=== PATIENT | male | born 1935 | race Caucasian/White ===

== ENCOUNTER → 2024-04-27 11:12 | Outpatient (REF) | payer OTHER, SELFPAY | LOC: RAD 11:12 | PROVIDERS: ATTENDING PHYSICIAN Internal Medicine | DX: N40.0 Benign prostatic hyperplasia without lower urinary tract symptoms (principal); R33.9 Retention of urine, unspecified | CPT/HCPCS: 76770 ==

== ENCOUNTER → 2024-05-12 14:13 | Outpatient (REF) | payer OTHER, SELFPAY | LOC: RAD 14:13 | PROVIDERS: ATTENDING PHYSICIAN Internal Medicine | DX: R55 Syncope and collapse (principal) | CPT/HCPCS: 93880 ==

== ENCOUNTER 2024-08-10 18:35 | Observation (INO) | payer OTHER, SELFPAY ==
[2024-08-10 15:37] VITALS: BP 154/74
[2024-08-10 16:31] VITALS: BP 177/78
[2024-08-10 16:38] LABS: % Basophils 0.5 % (0-2); % Eosinophils 2.7 % (0-6); % Immature Granulocytes 0.2 % (0-0.5); % Lymphocytes 34.3 % (20.5-51.1); % Monocytes 8.2 % (1.7-9.3); % Neutrophils 54.1 % (42.2-75.2); Absolute Eosinophils 0.2 10^3/uL (0-0.7); Absolute Monocytes 0.5 10^3/uL (0.1-0.6); Absolute Neutrophils 3.2 10^3/uL (1.4-6.5); Hematocrit 35.8 % (39.0-52.0); Hemoglobin 12.4 g/dL (13.0-18.0); Mean Corp Hgb Conc. 34.6 g/dL (33.0-37.0); Mean Corpuscular Hgb 32.4 pg (27.0-31.0); Mean Corpuscular Volume 93.5 fL (80.0-94.0); Mean Platelet Volume 10.7 fL (7.4-10.4); Nucleated Red Blood Cells % 0 % (-); Platelet Count 159 10^3/uL (130-400); Red Blood Cell Count 3.83 10^6/uL (4.70-6.10); Red Cell Dist. Width 12.9 % (11.5-14.5); White Blood Cell Count 5.9 10^3/uL (4.8-10.8)
[2024-08-10 17:01] LABS: Troponin I < 0.012 ng/ml
[2024-08-10 17:07] LABS: ALT (SGPT) 13 U/L (0-50); AST (SGOT) 18 U/L (17-59); Albumin 3.9 g/dl (3.5-5.0); Alkaline Phosphatase 77 U/L (38-126); Blood Urea Nitrogen 28 mg/dl (9-20); Calcium 9.2 mg/dl (8.4-10.2); Carbon Dioxide 27 mmol/L (22-30); Chloride 108 mmol/L (98-107); Glucose 101 mg/dl (70-99); Potassium 3.9 mmol/L (3.5-5.1); Sodium 142 mmol/L (135-145); Total Bilirubin 0.7 mg/dl (0.2-1.3); Total Protein 5.8 g/dl (6.3-8.2); eGFR > 60.00
--- NOTE | 2024-08-10 17:53 | HPS.HSE ---
Family Physician
-
Family Physician: Jamal Walsh
Chief Complaint
-
lightheaded, sob
History of Present Illness
89-year-old with past medical history for hypertension, BPH presented to us with shortness of breath and lightheaded with exertion. He felt that last when he was walking to the store, which resolved its on. Today he felt as he was walking
to his mailbox, which prompted him to come to the ER. Patient denies any chest pain. Patient denies any headache or syncope. Patient denied any blurry vision, numbness, tingling. Patient denies abdominal pain, nausea, vomiting or diarrhea.
Patient denies dysuria, hematuria.
EKG with sinus bradycardia. Admitted for further management
Medical History
Past Medical History
Past Medical History: Reports Other
Additional Past Medical History:
Hypertension
BPH
Dyslipidemia
Renal calculi
Diverticulosis
Central vein occlusion of right eye
Sciatica
Past Surgical History: Reports Appendectomy, Urological and Other
Additional Past Surgical History:
Basal cell carcinoma nose
Social History
Tobacco: Former Smoker
Alcohol: Occasional
Drug: None
Living: With Family
Family History
Family History: Not pertinent
Allergies / Home Medications
Allergies reflects when Allergies were last updated in [employer].
Home Medications with original date entered in [employer]
Allergy/Medication List:
Allergies
Allergy/AdvReac Type Severity Reaction Status Date / Time
No Known Allergies Allergy Verified 08/10/24 15:39
Home Medications
labetalol 300 mg tablet 600 mg PO BID 08/14/10
nifedipine 90 mg tablet,extended release 24 hr 90 mg PO QPM 08/14/10
valsartan 160 mg tablet (Diovan) 160 mg PO DAILY 08/14/10
cholecalciferol (vitamin D3) 50 mcg (2,000 unit) tablet (Vitamin D3) 50 mcg PO BID 08/10/24
finasteride 5 mg tablet 5 mg PO QPM 08/10/24
magnesium oxide 200 mg PO DAILY 08/10/24
tamsulosin 0.4 mg capsule 0.8 mg PO HS 08/10/24
therapeutic multivitamin 1 tab PO DAILY 08/10/24
Review of Systems
-
Constitutional: Reports No Symptoms
EENT: Reports No Symptoms
Respiratory: Reports Trouble Breathing
Cardiac: Reports No Symptoms
Abdomen/GI: Reports No Symptoms
: Reports No Symptoms
Musculoskeletal: Reports No Symptoms
Skin: Reports No Symptoms
Neurological: Reports Other (Lightheaded)
Endocrine: Reports No Symptoms
Hematologic/Lymphatic: Reports No Symptoms
Psych: Reports No Symptoms
Physical Exam
Vital Signs
Vital Signs
Temp Pulse Resp BP Pulse Ox
98.8 F 62 14 177/78 96
08/10/24 15:37 08/10/24 17:00 08/10/24 17:00 08/10/24 16:31 08/10/24 17:00
Physical Exam
General: Well Developed, Well Nourished and No Apparent Distress
HEENT: NormoCephalic, Moist mucous membranes and Atraumatic
Respiratory: Clear
Cardiac: S1/S2, Regular Rhythm and Bradycardia; No Murmur or Rub
GI: Soft, Non Tender, Non Distended and Normal Bowel Sounds; No Organomegaly
Rectal: Deferred by Provider
Musculoskeletal: No Clubbing, No Cyanosis and No Edema
Skin: No Rash
Neuro: AO x 3 and Nonfocal/grossly intact
Psych: Calm
Laboratory Results
-
08/10/24 16:28
08/10/24 16:28
Laboratory Results
Total Bilirubin 0.7 mg/dl (0.2-1.3) 08/10/24 16:28
AST 18 U/L (17-59) 08/10/24 16:28
ALT 13 U/L (0-50) 08/10/24 16:28
Alkaline Phosphatase 77 U/L (38-126) 08/10/24 16:28
Troponin I < 0.012 ng/ml 08/10/24 16:28
Data Reviewed
-
Lab Data: Labs Reviewed by me
Impression/Plan
-
#lightheaded/sob possible secondary to Bradycardia
- EKG with sinus bradycardia with first-degree AV block with frequent and consecutive PVCs and fusion complexes
- Continue to monitor on telemetry cardiology consulted
- Will hold labetalol
#essential hypertension
- Valsartan, nifedipine continued with hold parameters
# BPH
- Finasteride, tamsulosin continued
# DVT prophylaxis
- Lovenox subcu
# CODE STATUS
- Full code
--- NOTE | 2024-08-10 18:47 | W.PN.UPDATE ---
Update Note
Progress Note Update
This note serves as an addendum to the H&P by vb net developer STEPHANIE Jaqueline ARGUELLO
HPI
89M HX HTN control on Labetolol, HLD seenh at ER for SoB and and lightheaded with exertion.
- last when he was walking to the store, which resolved its on.
- Today he felt as he was walking to his mailbox, which prompted him to come to the ER.
ROS
Patient denies any chest pain. Patient denies any headache or syncope.
Patient denied any blurry vision, numbness, tingling.
Patient denies abdominal pain, nausea, vomiting or diarrhea. Patient denies dysuria, hematuria.
VS
08/10/24
15:37 08/10/24
16:15 08/10/24
16:30
Temp 98.8 F
Pulse 52 55
Resp Rate 21
Blood pressure 154/74
SaO2 97
Oxygen Mode of Delivery Room air
PE
Gen: Not toxic , NAD
HEENT: moist OM
Neck: supple , no bruit
Lungs: CTA
Cor: RRR S1 s2
Abdomen: Soft, Non Tender, Non Distended
BOIL OFF MACHINE OPERATOR CLOTH: AAO3 NFND
MS:No Edema
Psych: nl mood andf affect
Lab
08/10/24
16:28
WBC 5.9
Hgb 12.4 L
Plt Count 159
Chloride 108 H
BUN 28 H
Creatinine 1.1
eGFR > 60.00
Troponin I < 0.012
EKG
SINUS BRADYCARDIA WITH 1ST DEGREE A-V BLOCK WITH FREQUENT , AND CONSECUTIVE
PREMATURE VENTRICULAR COMPLEXES AND FUSION COMPLEXES
LEFT AXIS DEVIATION
ABNORMAL ECG
WHEN COMPARED WITH ECG OF 21-OCT-2018 15:50,
FUSION COMPLEXES ARE NOW PRESENT
PREMATURE VENTRICULAR COMPLEXES ARE NOW PRESENT
NONSPECIFIC T WAVE ABNORMALITY HAS REPLACED INVERTED T WAVES IN INFERIOR LEADS
Confirmed by ANUSHKA COLORADO MD ([id number]) on 08/10/2024 4:59:02 PM
No prior hospitalist admission:
ASSESSMENT & PLAN
Exertional lightheadedness ? symptomatic bradycardia
Noted Bradycardia : - EKG with SB with first-degree AVB with frequent and consecutive PVCs and fusion complexes
- TLM monitor
- Agree with holding Labetalol
- DCA card consulted
Essential HTN
- on Valsartan, nifedipine continued with hold parameters
BPH
- on SUPERVISOR WATERPROOFING Finasteride, tamsulosin
DVT Px: LMWH
Full code
Obs TLM
[2024-08-10 19:30] VITALS: BMI 25.6
[2024-08-10] MEDS: VITAMIN D3 (cholecalciferol) 50 MCG PO (20:12)
[2024-08-10] MEDS: FLOMAX 0.8 MG PO (20:13)
[2024-08-10 20:20] VITALS: BP 166/86
--- NOTE | 2024-08-10 20:20 | PTCARENOTE ---
Pt arrived onto floor @2019. Pt AAOx3 and able to walk into room without assistance. Pt with no complaints of pain or SOB at this time. Pt oriented to room and call pablo; will continue to monitor
[2024-08-10 23:48] VITALS: BP 173/87
[2024-08-11 00:12] VITALS: BP 178/78
[2024-08-11] MEDS: APRESOLINE 5 MG PO (00:24)
[2024-08-11 03:09] VITALS: BP 164/71
[2024-08-11 07:48] VITALS: BP 172/79
[2024-08-11 08:47] LABS: HDL Cholesterol 49 mg/dl; LDL Cholesterol, Calculated 85 mg/dl; Total Cholesterol 153 mg/dl (50-199); Triglyceride 97 mg/dl (10-149); Very Low Density Lipoprotein 19 mg/dl (0-30)
[2024-08-11] MEDS: MAG-TAB SR 84 MG PO (09:26)
[2024-08-11] MEDS: DIOVAN 160 MG PO (09:26)
[2024-08-11] MEDS: THERAGRAN 1 TABLET PO (09:27)
[2024-08-11] MEDS: VITAMIN D3 (cholecalciferol) 50 MCG PO (09:27)
--- NOTE | 2024-08-11 09:31 | CON.CAR ---
Addendum entered and electronically signed by Matthew Alvarez MD 08/11/24 14:58:
89-year-old man admitted with exertional lightheadedness and dyspnea. No recent true syncope, variable heart rates on smart watch. He has not fallen. He had a syncopal episode New Year's Edie in the, falling on his shoulder but without serious
injury. He was not having any of these symptoms of exertional lightheadedness and dyspnea prior to Saturday.
PMH: Hypertension, BPH, remote syncope, central retinal vein occlusion of the right eye, degenerative disc disease, sciatica
PSH: Appendectomy, epidurals, dermatologic and cataract
SH: Former smoker, occasional alcohol, , lives independently, former executive
FH: Noncontributory
Allergies: None
Outpatient medications: Labetalol 600 mg twice daily, nifedipine ER 90 mg daily, valsartan 160 mg daily, vitamin D, finasteride, magnesium, tamsulosin
Current meds: Magnesium, nifedipine ER 90 today, tamsulosin 0.5 g at bedtime, valsartan 160 mg daily,
166/85, Pulse 39-78, head neck exam unremarkable, lungs are clear, irregular rate and rhythm at times but no murmurs, JVD okay, carotids okay, abdomen benign extremities without clubbing cyanosis or edema distal pulses intact
ECG sinus bradycardia with PVCs in a trigeminal pattern, suspected rate related right bundle branch block, cannot rule out septal CO, left axis deviation
Hemoglobin 12.4, BUN/creatinine 28 and 1.1, troponin undetectable, LDL 85, TSH 1.38
Preliminary echo today: Normal LV function, no significant valve abnormality
Impression:
Dyspnea, lightheadedness with frequent PVCs
Bradycardia on high-dose labetalol
Hypertension
Syncope 04/28/2024
History of central retinal vein occlusion right eye
Plan:
He presents with near syncope on high-dose labetalol with a low effective heart rate in the setting of frequent PVCs. Since stopping labetalol, his heart rate has improved. His activity has been limited but he feels better. Suspect that episodes
of lightheadedness were related to combination of PVCs, bradycardia and possibly hypotension. Bradycardia and hypotension are likely improved with withdrawal of labetalol.
His troponin was undetectable at admission, it seems unlikely that PVCs are ischemic in origin, though as outpatient he should probably have a stress test.
He remains somewhat hypertensive. He was not orthostatic.
He will require an outpatient monitor and outpatient cardiac follow-up, which we will arrange.
From our standpoint, okay for discharge.
Recommended cardiac medications at discharge
Labetalol 150 mg twice daily (was 600 mg twice daily)
Valsartan 320 mg daily (increased dose)
Nifedipine ER 90 mg a day
Patient instructed to limit driving and keep activity light
Original Note:
Consultation
Consultation Request
Date/Time Consultation Requested: 08/10/2024
Date/Time Consultation Performed: 08/11/2024
Requesting Provider: Dr. Bueno
Performing Provider: Rosita Navarro PA-C for Dr. Matthew Alvarez
Reason for Consultation: Exertional lightheadedness, shortness of breath, bradycardia
Medical History
-
History of Present Illness:
Patient is an 89-year-old male with past medical history significant for hypertension, hyperlipidemia, BPH and prior history of remote syncope who presents to emergency department 08/10/2024 with complaints of exertional lightheadedness and shortness
of breath. Patient reports on several occasions over the last week particularly when getting out of the car and going into appointments or stores he will get lightheadedness and dyspnea on exertion. It seems to be progressively getting worse with
less activity. He denies lightheadedness or shortness of breath at rest. He denies chest pain or palpitations. He does wear a smart watch and has noted heart rate variability from 40 to 70 bpm. He denies orthopnea PND or edema. Given symptoms
were ongoing he decided to seek emergency medical attention. EKG on presentation showed sinus bradycardia with PVCs and trigeminal pattern. Troponin was undetectable. Blood pressure was noted to be elevated. He was on labetalol which was placed
on hold in emergency department.
At time of this evaluation patient reports he is feeling well. He denies recurrent symptoms but has not been up moving around a whole lot since admission.
Past Medical History:
Hypertension
BPH
History of syncope
Hyperlipidemia
Renal calculi
Diverticulosis
Central vein occlusion of right eye
Degenerative disc disease/Sciatica
Basal cell carcinoma on nose with resection
Past Medical History
Past Medical History: Other (See HPI)
Past Surgical History: Appendectomy, Orthopedic (Multiple spinal injections) and Other (Basal cell skin cell excision on nose 2018, cataract extraction January 2024)
Social History
Tobacco: Former Smoker
Alcohol: Occasional (Few times a week)
Drug: None
Personal:
Living: Alone (Independent living at [facility])
Employment: Retired (Former executive)
Family History
Family History: Early CAD (Brother) and Hypertension (Mother)
Allergies / Home Medications
Allergy/AdvReac Type Severity Reaction Status Date / Time
No Known Allergies Allergy Verified 08/10/24 15:39
�Medication �Instructions �Recorded �Confirmed �Type
labetalol 300 mg tablet 600 mg PO BID Blood Pressure 08/14/10 08/10/24 History
nifedipine 90 mg tablet,extended 90 mg PO QPM Heart 08/14/10 08/10/24 History
release 24 hr Disease/Condition
valsartan 160 mg tablet (Diovan) 160 mg PO DAILY Blood Pressure 08/14/10 08/10/24 History
cholecalciferol (vitamin D3) 50 50 mcg PO BID Supplement 08/10/24 08/10/24 History
mcg (2,000 unit) tablet (Vitamin
D3)
finasteride 5 mg tablet 5 mg PO QPM BPH 08/10/24 08/10/24 History
magnesium oxide 200 mg PO DAILY Supplement 08/10/24 08/10/24 History
tamsulosin 0.4 mg capsule 0.8 mg PO HS Urinary Issue 08/10/24 08/10/24 History
therapeutic multivitamin 1 tab PO DAILY Supplement 08/10/24 08/10/24 History
Review of Systems
-
History Source: Patient
All other systems: Negative unless noted
Physical Exam
Vital Signs
Temp Pulse Resp BP Pulse Ox
98.5 F 48 18 172/79 95
08/11/24 07:48 08/11/24 07:48 08/11/24 07:48 08/11/24 07:48 08/11/24 07:48
GEN: No distress, awake, Ox3
HEENT: supple, anicteric, mmm
LUNGS: CTA, no wheezes/rales
CV: Distant heart tones reg rhythm with occasional ectopy, S1/S2, 1/6 syst murmur, no rub or gallop
ABD: soft, BS+, NT/ND
EXT: No edema, clubbing or cyanosis
NEURO: Gross non-focal
SKIN: No rash, warm, dry, pink
Lab Results
08/10/24 16:28
08/10/24 16:28
Troponin I < 0.012 ng/ml 08/10/24 16:28
Impression / Plan
-
PCP: Neo Walsh
Improvement Manager: None prior to arrival, initial consultation
Impression:
Presented 08/10/2024 with exertional lightheadedness and dyspnea on exertion
Bradycardia
Frequent PVCs
Hypertension
BPH
History of syncope
Hyperlipidemia
Renal calculi
Diverticulosis
Central vein occlusion of right eye
Degenerative disc disease/Sciatica
Basal cell carcinoma on nose with resection
Echo 08/11/2024: Ordered
Plan:
-Presented 08/10/2024 with exertional lightheadedness and dyspnea on exertion x 1 week.
- EKG on admission showed sinus bradycardia with first-degree AV block and frequent PVCs and ventricular trigeminal pattern at times. Review of telemetry overnight shows ongoing frequent PVCs and form of ventricular bigeminy and trigeminy
- Labetalol currently on hold
-Check echocardiogram
-Laboratory studies rather unremarkable with normal electrolytes and renal function.
-Will add on magnesium and TSH
-History of hypertension previously maintained on labetalol, nifedipine and valsartan. Labetalol currently on hold.
-Would consider up titration of valsartan to 320 mg daily for better blood pressure control
-Pending echo could consider alternative beta-asia such as Toprol or Coreg
-Troponin negative. Consider ischemic evaluation as outpatient as patient's symptoms happen with activity
-Likely would benefit from wearing outpatient ambulatory monitor to assess overall PVC burden and heart rate response to activity
HPI 08/11/2024:
Patient is an 89-year-old male with past medical history significant for hypertension, hyperlipidemia, BPH and prior history of remote syncope who presents to emergency department 08/10/2024 with complaints of exertional lightheadedness and shortness
of breath. Patient reports on several occasions over the last week particularly when getting out of the car and going into appointments or stores he will get lightheadedness and dyspnea on exertion. It seems to be progressively getting worse with
less activity. He denies lightheadedness or shortness of breath at rest. He denies chest pain or palpitations. He does wear a smart watch and has noted heart rate variability from 40 to 70 bpm. He denies orthopnea PND or edema. Given symptoms
were ongoing he decided to seek emergency medical attention. EKG on presentation showed sinus bradycardia with PVCs and trigeminal pattern. Troponin was undetectable. Blood pressure was noted to be elevated. He was on labetalol which was placed
on hold in emergency department.
At time of this evaluation patient reports he is feeling well. He denies recurrent symptoms but has not been up moving around a whole lot since admission.
Data Reviewed
-
EKG: Report Reviewed by me, Discussed with Physician and Discussed with Patient
Labs: Labs Reviewed by me, Discussed with Physician and Discussed with Patient
Old Records: Reviewed
[2024-08-11 11:11] VITALS: BP 166/85
--- NOTE | 2024-08-11 11:27 | W.PN.HOSP.TC ---
Today's Communication/Plan
-
TTE
possible DC post echo read
Assessment / Plan
Assessment / Plan
89-year-old with past medical history for hypertension, BPH presented to us with shortness of breath and lightheaded with exertion. EKG with sinus bradycardia
Symptomatic Bradycardia
Exertional shortness of breath and lightheadedness
-admitted to telemetry
-hold BRASS POLISHER Labetalol
-monitor on telemetry
-appreciate cardiology consult
-TTE
-will need outpatient eval for cardiac monitoring and ischemic work up
Essential HTN
- on Valsartan, nifedipine continued with hold parameters
- may need to adjust regimen based on BP readings off Labetalol
BPH
- on BRASS POLISHER Finasteride, tamsulosin
DVT Px: LMWH
Full code
Obs TLM
Anticipated Discharge: Within 24 hours
Subjective/Interval History
-
Date of Service: August 11, 2024
feeling well today, hasn't walked around a significant amount
Objective Data
-
Vital Signs:
Vital Signs
Temp Pulse Resp BP Pulse Ox
97.5 F 39 18 166/85 97
08/11/24 11:11 08/11/24 11:11 08/11/24 11:11 08/11/24 11:11 08/11/24 11:11
I&O
08/10/24 08/11/24 08/12/24
06:59 06:59 06:59
Intake Total 240 / 240
Balance 240 / 240
Review of Systems
-
History Source: Patient
All other systems: Reviewed and negative
Physical Exam
-
General: No Apparent Distress and Conversant
HEENT: PERRLA
Respiratory: Clear to Auscultation; Negative Wheezes
Cardiac: Regular Rhythm and S1/S2
GI: Soft and Nontender
Musculoskeletal: No Edema
Skin: Warm and Dry; Negative Rash
Neuro: AO x 3
Psych: Calm
Data Reviewed
-
Diagnostic Radiology: Report Reviewed by me
Labs: Labs Reviewed by me
[2024-08-11 11:30] LABS: Magnesium 1.9 mg/dl (1.6-2.3)
[2024-08-11 12:00] LABS: TSH Reflex To Free T4 1.38 uIU/ml (0.47-4.68)
[2024-08-11 13:22] VITALS: BP 138/73; BP 140/76; PULSE 43; PULSE 60
[2024-08-11 15:02] VITALS: BP 156/81
--- NOTE | 2024-08-11 15:58 | W.DS.TRANS ---
DC Summary - Health Economist
-
Discharge Instructions:
Discharge Diagnosis/Procedures Bradycardia, dyspnea on exertion
Diet 2 Gram Sodium
Activity As tolerated
Driving Restrictions As prior to admission
Bathing Restrictions None
Others Tests You will go home with a 7 day ambulatory heart
monitor to will be returned to cardiology office
. Once returned monitor will take 7-10 days to
get results
Instructions:
Stand-Alone Forms:
Changes to Home Medications: Yes
Discharge Medications:
DC Medications w/original date entered in [employer]
nifedipine 90 mg tablet,extended release 24 hr 90 mg PO QPM Heart Disease/Condition 08/14/10
cholecalciferol (vitamin D3) 50 mcg (2,000 unit) tablet (Vitamin D3) 50 mcg PO BID Supplement 08/10/24
finasteride 5 mg tablet 5 mg PO QPM BPH 08/10/24
magnesium oxide 200 mg PO DAILY Supplement 08/10/24
tamsulosin 0.4 mg capsule 0.8 mg PO HS Urinary Issue 08/10/24
therapeutic multivitamin 1 tab PO DAILY Supplement 08/10/24
labetalol 300 mg tablet 150 mg (1/2 x 300 mg) PO BID Blood Pressure #0 tabs 08/11/24
valsartan 160 mg tablet (Diovan) 320 mg (2 x 160 mg) PO DAILY Blood Pressure #60 tabs 08/11/24
Home Medication Changes
Your Labetalol is decreased from 600mg (2 pills) to 150mg (0.5 pills) to take twice a day.
Your Valsartan is increased from 160mg (1 pill) to 320mg (2 pills) - continue to take once a day.
Pending Results: No
--- NOTE | 2024-08-11 16:16 | CM ---
agronomy location manager reviewed patient's chart and patient was admitted under OBS. CASE provided, patient lives in the [facility] [place] Home alone is independent with adl's and ambulation, patient has a cane that he uses sometimes. patient drives.
PCP: Dr. Walsh
Pharmacy [facility].
Plan; Home today no needs.
--- NOTE | 2024-08-11 16:17 | W.DCSUMMARY ---
Discharge Summary
Discharge Data
Date of Admission: 08/10/24
Date of Discharge: 08/11/24
-
Pending Results: No
Hospital Course
Discharging Physician : Dr. Mary Matson
Disposition : Home
Primary care physician : Dr. Jamal Walsh
Principal Discharge diagnosis : Bradycardia, Shortness of breath with exertion
Hospital Course :
Mr. Filiberto Lopez is a 89 yo man with hx essential HTN, BPH presented to the ER with shortness of breath and lightheadedness with exertion. Triage VS: T 98.8, P 62, RR 14, BP 177/78, SpO2 96%. Labs with WBC 5.9, HG 12.4, PLT 159, Na 142, K+
3.9, CO2 27, Cr 1.1, Glucose 101, liver enzymes WNL, Trop 0.012. EKG with sinus bradycardia with PVC's in a trigeminal pattern.
His Labetalol was held. He was admitted to medicine with Cardiology consulting for further work-up of dyspnea on exertion, possible symptomatic bradycardia versus PVC's. Patient's HR remained in 50's-60's off of Labetalol. TTE without significant
findings. Per Cardiology recommendations, he is discharged on 1/4 dose prior Labetalol (decrease from 600mg BID to 150mg BID) with an increase in Valsartan dosing from 160mg daily to 320mg daily. An outpatient heart monitor and Cardiology follow
up is arranged.
Patient was eager for discharge. He is instructed to monitor his blood pressure at home.
Time spent on discharge was 35 minutes.
Important imaging findings :
Procedure findings :
Discharge Plan
-
Patient Disposition: Home (Routine Discharge)
Discharge Diagnosis/Procedures: Bradycardia, dyspnea on exertion
Diet: 2 Gram Sodium
Activity: As tolerated
Driving Restrictions: As prior to admission
Bathing Restrictions: None
Others Tests: You will go home with a 7 day ambulatory heart monitor to will be returned to cardiology office. Once returned monitor will take 7-10 days to get results
Activity Restrictions/Additional Instructions:
Return to the ER if you have return of significant shortness of breath, chest discomfort, feelings of lightheadedness/dizziness
Referrals:
Rosita Navarro PA-C [Specified Professional Personl] - 09/02/24 12:40 pm (You have cardiology follow-up with Rosita Navraro PA-C on September 02 at 12:40 PM in [address] in [address] [place] which is located behind [facility]. If you are unable to make
this appointment please call [phone] to reschedule)
Jamal Walsh MD [Family Provider] - in less than 1 week
Additional Discharge Medication Instructions: Your Labetalol is decreased from 600mg (2 pills) to 150mg (0.5 pills) to take twice a day.
Your Valsartan is increased from 160mg (1 pill) to 320mg (2 pills) - continue to take once a day.
Monitor your blood pressure at home - 90 minutes after your morning medications and bring these recordings to your next clinic appointment. Check your blood pressure if you ever feel lightheaded or dizzy.
Prescriptions:
Continued
nifedipine 90 MG tablet extended release 24hr
90 mg PO QPM
therapeutic multivitamin Tablet
1 tab PO DAILY
tamsulosin 0.4 mg Capsule
0.8 mg PO HS
finasteride 5 mg Tablet
5 mg PO QPM
cholecalciferol (vitamin D3) [Vitamin D3] 50 mcg (2,000 unit) Tablet
50 mcg PO BID
magnesium oxide 200 mg magnesium Tablet
200 mg PO DAILY
Changed
valsartan [Diovan] 160 MG tablet
320 mg PO DAILY Qty: 60 0RF
labetalol 300 MG tablet
150 mg PO BID Qty: 0 0RF
Discharge Orders:
Discharge Patient (As Directed); Ordered 08/11/24
Ordered By: Mary Matson
Discharge Date and Time
Print Language: SWAZI
--- NOTE | 2024-08-12 16:21 | ED.GENMED ---
History of Present Illness
General
Chief Complaint: Dizziness
Source: patient
Exam Limitations: none
Time Seen by Provider: 08/10/24 15:57
History of Present Illness
History of Present Illness:
Patient presents with 3 episodes of shortness of breath with exertion. The third episode which was the day of admission was much worse with shorter distance. Previous episodes over the last few days have been with relatively significant distance.
Some lightheadedness with this. No chest pain no syncope. Patient feels fine at rest.
Past History
Past History
ED Past Medical History: HTN
ED Past Surgical History: Appendectomy
Social History
Tobacco: Non-smoker
Alcohol: Daily
Drug: None
Personal:
Living: with family
Employment: Retired (Retired [employer] of a [employer])
Family History
Family History: Other (nc)
Review of Systems
Review of Systems
All Other Systems: Not applicable
Constitutional: Denies fever or chills
Cardiac: Denies chest pain or syncope
Phy Exam
Physical Exam
Physical Exam:
GENERAL: Alert and oriented in no apparent distress
EYE: Orbits normal.
NECK: Supple, no significant adenopathy.
ENT: Pharynx without erythema
CARDIAC: Regular rate and rhythm without any obvious murmurs.
LUNGS: Clear breath sounds,normal
ABDOMEN: Soft, without focal tenderness or distention
NEUROLOGICAL: Alert and oriented , grossly non-focal
SKIN: Warm and dry, no rash or lesion, no discoloration, skin intact.
MUSCULOSKELETAL: No edema,no deformity.Good color
PSYCH: Normal and appropriate interaction.
Course
Orders/Labs/Results
Orders:
Orders
08/10/24 Breakfast
Cholesterol Lowering
At Your Request: Full Participation
Does patient need a safe tray?: No
Cholesterol Lowering: Sodium, 2 Gram
08/10/24 15:40
Electrocardiogram (*1) Urgent
Reason for Study: Shortness of Breath
08/10/24 16:28
Complete Blood Count/With Diff Urgent
Comprehensive Metabolic Panel Urgent
Troponin I Urgent
08/10/24 18:05
Admit/Transfer Patient As Directed
Co-Sign Provider:
Level of Care: Observation services
Assign to:: Telemetry
Physician / Group: kylie mireles
Diagnosis: bradycarida
Reason for Telemetry: Arrhythmia
Date to Stop Telemetry: 08/13/24
Time to Stop Telemetry: 11:00
PRN Pain Medication Management As Directed
May give lesser potent ordered pain med per pt: Yes
preference::
Protocol:: Medication orders for pain may be administered in a
manner that supports deferring to patient preference
when the pt is:
- Requesting an ordered lesser potent pain medication.
Least to most potent pain medications are defined
as: acetaminophen < NSAID < tramadol < opioids
(morphine, oxycodone, hydromorphone).
- Requesting a lesser dose of the same medication IF
ORDERED.
- Requesting a less intrusive route of administration
if both routes are prescribed by the provider (PO <
IV).
08/10/24 18:06
Code Status As Directed
Resuscitation Status: Full Code
08/10/24 19:30
Acetaminophen [Tylenol] 650 mg PO Q4HPRN PRN
Bisacodyl [Dulcolax] 10 mg RECTAL [id number] PRN
Docusate W/Senna [Senokot-S] 1 tablet PO BIDPRN PRN
Polyethylene Glycol Powder [Miralax] 17 grams PO DAILYPRN PRN
08/10/24 19:30
CARDIOLOGY CONSULT Routine
Consulting Provider: Dayton Skelton
Was physician already notified: Yes
Activity As Directed
Activity Level: As Tolerated
Vital Signs As Directed
Frequency: Per unit guidelines
DX Deep Vein Thrombosis Video Routine
08/10/24 20:00
Cholecalciferol (Vitamin D3) [VITAMIN D3 (cholecalciferol)] 50 mcg PO BID
08/10/24 22:00
Tamsulosin [Flomax] 0.8 mg PO HS
08/11/24 07:16
Cardiovascular Evaluation IN AM
08/11/24 08:00
Magnesium l-Lactate [Mag-Tab Sr] 84 mg PO DAILY
Multivitamin [Theragran] 1 tablet PO DAILY
Valsartan [Diovan] 160 mg PO DAILY
08/11/24 18:00
Enoxaparin Sodium [Lovenox] 40 mg SC QPM
Finasteride [Proscar] 5 mg PO QPM
NIFEdipine EXTENDED RELEASE [Procardia Xl (Extended Release)] 90 mg PO QPM
08/13/24 11:00
DC Protocol for Telemetry ONCE
Abnormal Lab Results
08/10/24
16:28
RBC 3.83 L 10^6/uL
(4.70-6.10)
Hgb 12.4 L g/dL
(13.0-18.0)
Hct 35.8 L %
(39.0-52.0)
MCH 32.4 H pg
(27.0-31.0)
MPV 10.7 H fL
(7.4-10.4)
Chloride 108 H mmol/L
(98-107)
BUN 28 H mg/dl
(9-20)
Glucose 101 H mg/dl
(70-99)
Total Protein 5.8 L g/dl
(6.3-8.2)
08/10/24 16:28
08/10/24 16:28
Vital Signs
Initial and Last Documented VS:
Initial Vital Signs
Temp Pulse Resp BP Pulse Ox
98.8 F 38 16 154/74 97
08/10/24 15:37 08/10/24 15:37 08/10/24 15:37 08/10/24 15:37 08/10/24 15:37
Last Documented Vital Signs
Temp Pulse Resp BP Pulse Ox
97.5 F 64 16 156/81 98
08/11/24 15:02 08/11/24 15:02 08/11/24 15:02 08/11/24 15:02 08/11/24 15:02
MDM/Problems Addressed
Differential Diagnosis Includes:
Patient presenting with shortness of breath with exertion and near syncope. Relatively bradycardic at rest. Reported had a heart rate in the 30s at triage. Possibly a rate related issue or anginal issue. Warrants inpatient management.
*Pulse Oximetry
Patient hypoxic: no
*EKG
Interpreted by ED Provider?: Yes
Interpretation: abnormal
Comparison EKG: changes noted
Heart Rate: 55
Rate: bradycardiac
Rhythm: sinus and PVC's
[place]: left axis deviation
Interval: first degree heart block
Ischemia: non-specific ST changes
*Charter Representative Interpretation
Rate: bradycardiac
Heart Rate: 52
Rhythm: sinus
*Critical Care Note
Total Time (30-74mins, 75-104mins- exclusive of procedures): Not Applicable
Data Reviewed
Review of Other/Old Records Reveals: Labs, Records and Testing
ED Attending Note
-
Portions of this chart may have been created with voice recognition software.� Occasional wrong word or��sound alike� substitutions may have occurred due to the inherent limitations of voice recognition software.
Discharge Plan
Departure
Patient Disposition: Admit
Date of Disposition: 08/10/24
Time of Disposition: 17:44
Presentation/result/management discussed w/ accepting MD/DO: Hospitalist
Discharge Problem:
Exertional shortness of breath with near
Interventions
Interventions:
*Risk Screen - Suicide Last Done: 08/10/24 15:37
*General Assessment Last Done: 08/10/24 16:21
*Neglect/Abuse Screening Last Done: 08/10/24 15:37
*ED- Fall Risk Assessment Last Done: 08/10/24 16:21
*ED COVID-19 Vaccine History Last Done: 08/10/24 16:21
*Nursing Disposition Last Done: 08/10/24 19:21
ED- Cardiac Assessment Last Done: 08/10/24 18:16
Discharge Date and Time
Discharge Date/Time: 08/10/24 19:21
== END 2024-08-11 16:49 | disposition home or self-care (01) ==
LOC: 4 WEST ACU 18:35
PROVIDERS: Emergency Medicine; Registered Nurse; ADMITTING PHYSICIAN Internal Medicine; ATTENDING PHYSICIAN Student in an Organized Health Care Education/Training Program; EMERGENCY PHYSICIAN Emergency Medicine; FAMILY PHYSICIAN Internal Medicine; OTHER PHYSICIAN Internal Medicine Cardiovascular Disease
DX: R00.1 Bradycardia, unspecified (principal); I10 Essential (primary) hypertension; N40.0 Benign prostatic hyperplasia without lower urinary tract symptoms; E78.5 Hyperlipidemia, unspecified; Z79.899 Other long term (current) drug therapy; Z82.49 Family history of ischemic heart disease and other diseases of the circulatory system; Z87.891 Personal history of nicotine dependence
CPT/HCPCS: 80053; 80061; 83735; 84443; 84484; 85025; 93005; 93306; 99285; G0378